=== PATIENT | male | born 1960 | race Caucasian/White ===

== ENCOUNTER 2016-12-06 07:01 | Day surgery (SDC) | payer OTHER ==
[~2016-12-06] VITALS: Ht 175.3 cm; Wt 101.7 kg
== END 2016-12-06 09:15 | disposition short-term general hospital (02) ==
LOC: SURGOP 07:01
PROC: 01N50ZZ Release Median Nerve, Open Approach (ICD-10-PCS; principal; 2016-12-06)
DX: G56.01 Carpal tunnel syndrome, right upper limb (principal); I10 Essential (primary) hypertension; G54.0 Brachial plexus disorders; E03.9 Hypothyroidism, unspecified; F41.9 Anxiety disorder, unspecified; E66.9 Obesity, unspecified; Z68.33 Body mass index [BMI] 33.0-33.9, adult; Z88.6 Allergy status to analgesic agent; Z79.899 Other long term (current) drug therapy; Z98.890 Other specified postprocedural states
CPT/HCPCS: J0690; J2250; J3010

== ENCOUNTER → 2016-12-20 | Outpatient (CLI) | payer OTHER | END | disposition short-term general hospital (02) | LOC: CLORTH 04:12 | DX: Z47.89 Encounter for other orthopedic aftercare (principal) ==